=== PATIENT | female | born 1980 | race Caucasian/White ===

== ENCOUNTER → 2017-04-19 | Outpatient (CLI) | payer BC | LOC: SUN.DIA 03-29 11:06 | DX: O24.419 Gestational diabetes mellitus in pregnancy, unspecified control (principal); Z3A.34 34 weeks gestation of pregnancy; Z71.3 Dietary counseling and surveillance | CPT/HCPCS: G0108 ==

== ENCOUNTER → 2017-04-19 | Outpatient (CLI) | payer BC | LOC: SUN.DIA 14:37 | DX: O24.419 Gestational diabetes mellitus in pregnancy, unspecified control (principal); Z3A.34 34 weeks gestation of pregnancy; Z71.3 Dietary counseling and surveillance | CPT/HCPCS: G0108 ==

== ENCOUNTER 2017-05-31 13:30 | Inpatient (IN) | payer BC ==
[2017-05-31] VITALS (40 sets, daily range): BP systolic 118–168; BP diastolic 67–95; PULSE 69–102; TEMP 97.3–98.5
[~2017-05-31] VITALS: Ht 160 cm; Wt 65.9 kg
[2017-05-31] MEDS ORDERED: PRENATAL PLUS PO (14:02)
[2017-05-31 14:52] LABS: BASO # 0.1 (0.0-0.2); BASO % 0.5 % (0.0-2.0); EOS # 0.1 (0.0-0.7); EOS % 0.4 % (0-4.0); GRAN # 9.7 (1.4-6.5); GRAN % 79.9 % (42.2-75.2); HEMATOCRIT 39.4 % (37.0-47.0); HEMOGLOBIN 13.5 g/dl (12.5-16.0); LYMPH # 1.5 (1.2-3.4); LYMPH % 12.7 % (20.0-51.0); MEAN CELL VOLUME 91 fl (80.0-100.0); MEAN CORPUSCULAR HEMOGLOBIN 31 pg (27.0-31.0); MEAN CORPUSCULAR HGB CONC 34 g/dl (33.0-37.0); MEAN PLATELET VOLUME 12.1 fl (7.4-10.4); MONO # 0.7 (0.1-0.6); MONO % 5.8 % (1.7-9.3); PLATELET COUNT 141 K/mm3 (130-400); RED BLOOD COUNT 4.34 M/mm3 (4.10-5.30); WHITE BLOOD COUNT 12.1 K/mm3 (4.8-10.8)
[2017-06-01 00:31] VITALS: BP 131/73; PULSE 87
[2017-06-01 08:13] VITALS: BP 124/76; PULSE 84; TEMP 98
[2017-06-01] MEDS ORDERED: MOTRIN 800800 MG/TAB PO (13:00)
[2017-06-01 16:33] VITALS: BP 124/78; PULSE 77; TEMP 98
[2017-06-01 18:45] VITALS: BP 132/75; PULSE 80; TEMP 97.6
[2017-06-02 08:03] VITALS: BP 127/79; PULSE 76; TEMP 97.4
== END 2017-06-02 09:00 | disposition home or self-care (01) | DRG 775 ==
LOC: LDRO 13:30 → OB 13:35 → LDR 13:35 → OB 06-01 00:50 → EDSTATUS 06-03 13:29 → OB 06-03 14:16
PROVIDERS: Obstetrics & Gynecology
PROC: 10E0XZZ Delivery of Products of Conception, External Approach (ICD-10-PCS; principal; 2017-05-31)
PROC: 0KQM0ZZ Repair Perineum Muscle, Open Approach (ICD-10-PCS; 2017-05-31)
DX: O99.824 Streptococcus B carrier state complicating childbirth (principal); O24.420 Gestational diabetes mellitus in childbirth, diet controlled; O70.1 Second degree perineal laceration during delivery; Z3A.39 39 weeks gestation of pregnancy; Z37.0 Single live birth
CPT/HCPCS: J2540; J2590; J2795; J7120

== ENCOUNTER → 2020-03-24 | Outpatient (CLI) | payer OTHER ==
[~2020-03-24] MED LIST: MOTRIN 800800 MG/TAB PO; PRENATAL PLUS PO
== END ==
LOC: COL.RAD
DX: R10.11 Right upper quadrant pain (principal)

== ENCOUNTER → 2020-04-21 | Outpatient (CLI) | payer OTHER ==
[~2020-04-21] MED LIST changes: +ASPIRIN 81M81 MG/TA2 PO; +CLARITIN 1010 MG/TAB PO; +INDERAL LA120 MG PO
== END ==
LOC: COL.RAD 11:34
DX: R80.9 Proteinuria, unspecified (principal)

== ENCOUNTER 2020-04-28 16:18 | Inpatient (IN) | payer OTHER ==
[~2020-04-28] VITALS: Ht 160 cm; Wt 57.5 kg
[2020-05-01] VITALS (11 sets, daily range): BP systolic 103–128; BP diastolic 57–92; PULSE 66–90; TEMP 97.6–98.3
[2020-05-01] MEDS ORDERED: ASPIRIN 81M81 MG/TA2 PO (06:16)
[2020-05-01] MEDS ORDERED: INDERAL LA120 MG PO (06:16)
[2020-05-01] MEDS ORDERED: CLARITIN 1010 MG/TAB PO (06:17)
--- NOTE | 2020-05-01 06:20 | NUR ---
Patient arrives to [facility] for admission. She is alert and oriented. Procedure is confirmed. She denies any questions and verbalizes understanding. VSS and WNL on room air. Her accompanies her. They are in good spirits, conversing and joking with staff. Patient's last PO intake is confirmed, last fluid was at 0500 today, last solid was yesterday at 2100. Health history is obtained. Breath sounds are clear bilaterally to auscultation. Clear S1S2 heart tones are heard with regular rate noted. PERRLA noted with +2 pupils bilaterally. +2 radial pulses bilaterally. She denies pain, numbness, tingling. She refuses the urine test, as her has had a vasectomy. Pre-op medications are given as ordered.
[2020-05-01 06:43] LABS: BASO # 0.1 (0.0-0.2); EOS # 0.1 (0.0-0.7); EOS % 1.4 % (0-4.0); GRAN # 4.7 (1.4-6.5); GRAN % 67.7 % (42.2-75.2); HEMATOCRIT 38.5 % (37.0-47.0); LYMPH # 1.6 (1.2-3.4); LYMPH % 22.7 % (20.0-51.0); MEAN CELL VOLUME 86 fl (80.0-100.0); MEAN CORPUSCULAR HEMOGLOBIN 29 pg (27.0-31.0); MEAN CORPUSCULAR HGB CONC 34 g/dl (33.0-37.0); MONO # 0.5 (0.1-0.6); MONO % 6.9 % (1.7-9.3); PLATELET COUNT 274 K/mm3 (130-400); RED BLOOD COUNT 4.47 M/mm3 (4.10-5.30); REDCELL DISTRIBUTION WIDTH-CV 12.8 % (11.5-14.5)
[2020-05-01 06:49] LABS: CALCIUM 9.3 mg/dL (8.4-10.2); CREATININE, serum 0.83 (0.52-1.25); POTASSIUM 3.9 mmol/L (3.4-5.0)
--- NOTE | 2020-05-01 11:51 | NUR ---
Patient up from surgery. Patients vitals are stable on Room air. Patient has 1 midline incision and 2 lap sites open to air. SCDs are on. Assessment and med rec done. Will continue to monitor post op vitals.
--- NOTE | 2020-05-01 17:23 | NUR ---
Patient resting in bed. Patient had some complaints of pain and was given an oxycodone. Patient reports feeling better. Patient stood up at bedisde and tolerated it well.
--- NOTE | 2020-05-01 20:00 | NUR ---
Report received, assumed care for second shift supervisor. Assessment complete. A&Ox3. VS stable. Denies nausea/shortness of breath/pain. Tolerating clear liquids. Lap sites x2-edges well approximated-mo drainage noted. Midline abdominal incision-edges well approximated-no drainage noted. Delaney cath with clear yellow urine. +flatus. LR@75mls/hr to right wrist IV. Plan of care discussed for this shift to include pain control/ambulation/calling for needs. Verbalizes understanding. Call light in reach. Will monitor.
--- NOTE | 2020-05-01 21:00 | NUR ---
Called with c/o pain to abdomen/left side. Rating pain 7/10 on pain scale-described as constant throbbing. Oxycodone given per dr lundberg.
--- NOTE | 2020-05-01 23:50 | NUR ---
Up to ambulate in hallway at this time. Ambulated approx 300 feet. Tolerated well.
[2020-05-02 00:35] VITALS: BP 101/59; PULSE 84; TEMP 98.2
[2020-05-02 04:33] VITALS: BP 95/69; PULSE 71; TEMP 98.5
[2020-05-02 06:48] LABS: BASO % 0.2 % (0.0-2.0); EOS % 0.1 % (0-4.0); GRAN # 11.6 (1.4-6.5); GRAN % 79.7 % (42.2-75.2); HEMATOCRIT 32.9 % (37.0-47.0); HEMOGLOBIN 10.9 g/dl (12.5-16.0); LYMPH # 1.8 (1.2-3.4); LYMPH % 12.4 % (20.0-51.0); MEAN CELL VOLUME 88 fl (80.0-100.0); MEAN CORPUSCULAR HEMOGLOBIN 29 pg (27.0-31.0); MEAN CORPUSCULAR HGB CONC 33 g/dl (33.0-37.0); MEAN PLATELET VOLUME 11.8 fl (7.4-10.4); PLATELET COUNT 221 K/mm3 (130-400); RED BLOOD COUNT 3.74 M/mm3 (4.10-5.30)
[2020-05-02 07:03] LABS: CALCIUM 8.5 mg/dL (8.4-10.2); CREATININE, serum 1.39 (0.52-1.25); POTASSIUM 3.8 mmol/L (3.4-5.0)
--- NOTE | 2020-05-02 07:13 | NUR ---
Dr Watters here to see patient.
[2020-05-02 07:51] VITALS: BP 110/64; PULSE 82; TEMP 97.8
--- NOTE | 2020-05-02 08:14 | NUR ---
Delaney catheter removed per drs order.
--- NOTE | 2020-05-02 09:30 | NUR ---
Patient alert and oriented, answers questions appropraitely. See assessment. Abdomen soft, non tender, non distended. Bowel sounds active x4 quads. +Flatus. Lap sites and midline incision with edges well approximated, no redness or drainage noted. ERAS protocol reviwed with patient. No c/o at this time.
--- NOTE | 2020-05-02 09:31 | NUR ---
Initial visit; Patient thanked Director Outcomes for looking in on her and wishing her well and God's blessings.
--- NOTE | 2020-05-02 09:39 | NUR ---
BONG met with the patient and her , Ino (ph#[phone]), to discuss discharge plan. The patient lives in [place] with her and two children. She reports independence with ADLs and does not have any DME. The patient's PCP is Dr. Lillian Sanchez and she receives her medications at [facility]. She reports no difficulties obtaining her meds. The patient does not have a DPOA-HC and she was not interested in completing a DPOA-HC at this time. The patient plans to return home with her family upon discharge. No additional needs at this time.
[2020-05-02 12:28] VITALS: BP 119/73; PULSE 76; TEMP 98.1
--- NOTE | 2020-05-02 16:39 | NUR ---
Discharge instructions reviewed with patient and spouse, verbalized understanding. Discharged via wheelchair to auto/home with spouse at 1630.
== END 2020-05-02 16:30 | disposition home or self-care (01) | DRG 661 ==
LOC: INPTSU 05-01 05:38 → SURG 05-01 07:30
PROVIDERS: ADMIT Urology
PROC: 0TT14ZZ Resection of Left Kidney, Percutaneous Endoscopic Approach (ICD-10-PCS; principal; 2020-05-01 07:30)
DX: N28.89 Other specified disorders of kidney and ureter (principal); I10 Essential (primary) hypertension; G43.909 Migraine, unspecified, not intractable, without status migrainosus
CPT/HCPCS: A4314; A9284; J0690; J1100; J1650; J1885; J2175; J2250; J2370; J2405; J2704; J2795; J3010; J7120

== ENCOUNTER → 2020-04-28 | Outpatient (CLI) | payer OTHER ==
[~2020-04-28] MED LIST changes: -ASPIRIN 81M81 MG/TA2 PO; -CLARITIN 1010 MG/TAB PO; -INDERAL LA120 MG PO
== END ==
LOC: COL.RAD 07:10
DX: N28.89 Other specified disorders of kidney and ureter (principal)
CPT/HCPCS: Q9967

== ENCOUNTER → 2021-04-15 | Outpatient (CLI) | payer BC ==
[~2021-04-15] MED LIST changes: +ASPIRIN 81M81 MG/TA2 PO; +CLARITIN 1010 MG/TAB PO; +INDERAL LA120 MG PO
== END ==
LOC: COL.RAD 11:16
DX: Z01.812 Encounter for preprocedural laboratory examination (principal); R93.422 Abnormal radiologic findings on diagnostic imaging of left kidney; Z90.5 Acquired absence of kidney
CPT/HCPCS: Q9967

== ENCOUNTER → 2021-10-23 | Outpatient (CLI) | payer OTHER | LOC: MC.RAD 11:14 | DX: Z12.31 Encounter for screening mammogram for malignant neoplasm of breast (principal) ==

== ENCOUNTER → 2023-05-03 | Outpatient (CLI) | payer BC | LOC: COL.RAD 08:29 | DX: R93.422 Abnormal radiologic findings on diagnostic imaging of left kidney (principal); Z90.5 Acquired absence of kidney | CPT/HCPCS: Q9967 ==

== ENCOUNTER → 2023-07-26 | Outpatient (CLI) | payer BC | LOC: MC.RAD 13:46 | DX: N63.20 Unspecified lump in the left breast, unspecified quadrant (principal) ==